=== PATIENT | female | born 1995 | race Caucasian/White ===

== ENCOUNTER 2017-12-27 02:16 | Emergency (ER) | payer MEDICAID ==
[~2017-12-27] VITALS: Ht 157.5 cm; Wt 100.0 kg
[2017-12-27 06:35] VITALS: BP 124/76
== END 2017-12-27 07:20 | disposition home or self-care (01) ==
LOC: ER 02:17 → EDBD 02:17 → ER 07:20
DX: F41.0 Panic disorder [episodic paroxysmal anxiety] (principal)
CPT/HCPCS: 81025; 99284